=== PATIENT | female | born 1935 | race Caucasian/White ===

== ENCOUNTER → 2022-02-26 | Outpatient (CLI) | payer MEDICARE ==
[~2022-02-26] MED LIST: BACITRACIN 500U30 GM; BISA-LAX10 MG R; COLACE100 MG PO; COUMADIN4 M1 PO; FEOSOL300 MG PO; FOLIC ACID1 MG PO; FOSAMAX70 MG PO; HYDROCODONE BIT1 T11 PO; HYZAAR 12.5 MG-1 TA2 PO; MEDROL DOSEPAK4 MG PO; MOM30 M1 PO; MULTI VITAMINS1 TAB PO; NAPROSYN500 MG PO; NORVASC5 MG PO; Oscal,Oyster S500 MG PO; TYLENOL325 M1 PO; VICON FORTE1 CAP PO
== END | disposition home or self-care (01) ==
LOC: MAMMO 14:20
PROVIDERS: ATTEND Internal Medicine
DX: Z12.31 Encounter for screening mammogram for malignant neoplasm of breast (principal)

== ENCOUNTER → 2024-07-16 | Outpatient (CLI) | payer MEDICARE | END | disposition home or self-care (01) | LOC: RAD 15:06 | PROVIDERS: ATTEND Internal Medicine | DX: S32.030A Wedge compression fracture of third lumbar vertebra, initial encounter for closed fracture (principal); M51.16 Intervertebral disc disorders with radiculopathy, lumbar region; M47.26 Other spondylosis with radiculopathy, lumbar region; M41.86 Other forms of scoliosis, lumbar region; M48.061 Spinal stenosis, lumbar region without neurogenic claudication; X58.XXXA Exposure to other specified factors, initial encounter; Y93.89 Activity, other specified; Y92.89 Other specified places as the place of occurrence of the external cause; Y99.8 Other external cause status ==

== ENCOUNTER → 2024-08-18 | Outpatient (CLI) | payer MEDICARE | END | disposition home or self-care (01) | LOC: MRI 01:35 | PROVIDERS: ATTEND Internal Medicine | DX: S32.030A Wedge compression fracture of third lumbar vertebra, initial encounter for closed fracture (principal); M51.27 Other intervertebral disc displacement, lumbosacral region; X58.XXXA Exposure to other specified factors, initial encounter; Y93.89 Activity, other specified; Y92.89 Other specified places as the place of occurrence of the external cause; Y99.8 Other external cause status ==

== ENCOUNTER → 2024-09-06 | Outpatient (CLI) | payer MEDICARE | END | disposition home or self-care (01) | LOC: RAD 08-30 01:48 | PROVIDERS: ATTEND Internal Medicine | DX: S32.030D Wedge compression fracture of third lumbar vertebra, subsequent encounter for fracture with routine healing (principal); M81.0 Age-related osteoporosis without current pathological fracture; Z78.0 Asymptomatic menopausal state; X58.XXXD Exposure to other specified factors, subsequent encounter ==

== ENCOUNTER 2024-11-30 09:57 | Emergency (ER) | payer MEDICARE ==
[~2024-11-30] VITALS: Ht 165.1 cm; Wt 53.1 kg
[2024-11-30] MEDS ORDERED: Acetaminophen/Hydrocodone 5 MG/325 MG TABLET PO ONE (11:10)
[2024-11-30] MEDS ORDERED: PREDNISONE20 M1 PO (12:51)
[2024-11-30] MEDS ORDERED: methylPREDNISolone sod succ 125 MG VIAL IM ONE (12:55)
== END 2024-11-30 13:11 | disposition home or self-care (01) ==
LOC: ED 09:57
DX: S32.030A Wedge compression fracture of third lumbar vertebra, initial encounter for closed fracture (principal); I10 Essential (primary) hypertension; M81.0 Age-related osteoporosis without current pathological fracture; Z79.899 Other long term (current) drug therapy; Z79.01 Long term (current) use of anticoagulants; M54.50 Low back pain, unspecified; Z90.49 Acquired absence of other specified parts of digestive tract; G89.29 Other chronic pain; X58.XXXA Exposure to other specified factors, initial encounter; Y93.89 Activity, other specified; Y92.89 Other specified places as the place of occurrence of the external cause; Y99.8 Other external cause status